=== PATIENT | female | born 1930 | race Caucasian/White ===

== ENCOUNTER 2017-04-19 13:07 | Emergency (ER) | payer OTHER ==
[~2017-04-19 13:07] MED LIST: ACETAMINOPHEN325 MG PO; AMLODIPINE BESY10 MG PO; BACTRIM DS1 TAB PO; BISACODYL LAXATI5 MG PO; BISACODYL10 MG PR; CARVEDILOL12.5 MG PO; DIAZEPAM2 MG PO; MILK OF MA400 MG/5 M PO; MINIPRESS2 MG PO; MIRALAX EQUIVAL17 GM PO; TRAZODONE HCL50 MG PO; VITAMIN B-12500 MC1 PO; [UNRECOGNIZED DRUG - OTHER] PO
--- NOTE | 2017-04-19 13:50 | DIAGNOSTIC IMAGING REPORT ---
PROCEDURE: XR TOE - RIGHT INDICATION: PAIN TECHNIQUE: Three views. COMPARISON: None. FINDINGS: Osteoarthritis involving the right first MTP joint and the interphalangeal joint. No evidence of osteomyelitis. IMPRESSION: 1. Osteoarthritis. No evidence of osteomyelitis in the right first toe
--- NOTE | 2017-04-19 14:03 | ED NURSING NOTES ---
Clinical Report - Nurses [facility] [address] [place] [address] 04/19/2017 13:09 Patient: ELIZABETH SALVADOR TRIAGE Triage time 13:16. Acuity: LEVEL 4. Chief Complaint: RIGHT LOWER EXTREMITY PAIN and SWELLING. --13:23 Jd Kong R.N. 13:16 04/19/17. BP: 136/65. HR: 61. RR: 18. O2 saturation: 99%. Temp: 98.6 F (temporal). Pain level now: cannot qualify. --13: Jd Kong R.N. Weight: 63.5 kg. Height/Length: 67 inches. BMI: 21.9. --13: Jd Kong R.N. Medications Acetaminophen Oral (Tablet 325 mg) 2 tablets, 4x a day as needed. AmLODIPine Besylate Oral (Tablet 10 mg) 1 tablet, daily. Bisac-Evac Rectal, as needed. Bisacodyl Oral, as needed. Carvedilol Oral (Tablet 12.5 mg) 1 tablet, daily. Diazepam Oral 2 mg, 3x a day as needed. Mi-Acid Gas Relief Oral 30 mL, as needed. Milk of Magnesia Concentrate Oral 30 mLs, prn. Polyethylene Glycol 3350 Oral 34 gm, as needed. Prazosin HCl Oral (Capsule 2 mg) 1 capsule, 2x a day. TraZODone HCl Oral (Tablet 50 mg) 1 tablet, at bedtime. Vitamin B 12 Oral 500mcg, 2x/day. --13:20 Jd Kong R.N. Medication/allergy information source: the patient's family. --13:23 Jd Kong R.N. Allergies No Known Drug Allergy. --13:20 Jd Kong R.N. History Arrived by private vehicle. Historian: daughter and family. ( Right big toe became noticeably red and swollen in the last 24 hours. Was complaining of right big toe pain since. No fever as per caregiver in the assisted living place.). No injury occurred. This occurred yesterday. She has had swelling (24 hours). She has had redness and trouble walking. Treatment SENIOR GIS ANALYST: (unknown). PAST MEDICAL HX: ( seen by rn intake 2 months ago for her foot care). --13: Jd Kong R.N. Interventions ID band on patient. To room. --13: Jd Kong R.N. PHYSICAL ASSESSMENT Ambulatory to room. GENERAL / NEURO / PSYCH: Appears in no acute distress. She is confused. EXTREMITIES: Extremity pulses are within normal limits. Extremities exhibit normal ROM. Normal gait. Right foot: tenderness and swelling of the first toe. SKIN: Skin intact. Skin is warm and dry. ( right big toe red and swollen). --13 Jd Kong R.N. NURSING PROGRESS NOTES Cold pack applied. Reassurance given. Patient identifiers checked. Side rails up x 2. Bed placed in lowest position. Brakes of bed on. Patient ready for evaluation- INDUSTRIAL X RAY OPERATOR notified. -- Jd Kong R.N. Wound cleansed with sterile saline. Applied clean dressing (non-adherent dressing). GENERAL / NEURO / PSYCH: Alert. RESPIRATORY: No respiratory distress. CVS: Capillary refill less than 2 seconds. EXTREMITIES: Neuro-vascular status intact to the extremities. SKIN: Skin is warm and dry. --14:10 Jd Kong R.N. DISPOSITION / DISCHARGE Discharge instructions provided and reviewed with the caregiver and family (daughter). Reviewed medication(s) side effects, precautions, dosing and course information. Prescription(s) given to the menagerie caretaker (daughter). Reviewed referral to a primary care physician. Scourer verbalized understanding. Written instructions provided in German. Verbalized understanding (daughter). The patient was [facility] to the [facility] and accompanied by family. She left the Emergency Department ambulatory and via private vehicle. Family member driving. --14:12 Jd Kong R.N. 14:11 04/19/17. BP: 132/72. HR: 62. RR: 16. O2 saturation: 98%. Temp: deferred. Pain level now: cannot qualify. --14:12 Jd Kong R.N. Departure time: 14:12. --14:13 Jd Kong R.N. Locked/Released at 04/19/2017 14:13 by Jd Kong R.N.
--- NOTE | 2017-04-19 14:03 | ED CLINICAL REPORT ---
Clinical Report - Physicians/Mid Levels [facility] [address] [place] [address] 04/19/2017 13:09 Patient: ELIZABETH SALVADOR Time Seen: 1309Apr 19 2017. Arrived- By private vehicle. Historian- patient. HISTORY OF PRESENT ILLNESS Chief Complaint: Injury to the right great toe. (Pain/ Swelling). The injury happened 1 - 2 days. Patient is experiencing mild pain. (Patient previously has visited the supervisor sulfuric acid plant for her right great toe Daughter reports recently patient at the [facility], retirement with some swelling to the right great toe. Pt is verbal and ambulatory, difficulty with coherence. No new fevers. Behavior is her norm for patiet.). REVIEW OF SYSTEMS All systems otherwise negative, except as recorded above. PAST HISTORY See nurses notes. The patient has not had a prior injury to the same area. Problems: Chronic kidney disease. Syncope. Chronic kidney disease. UTI - Urinary Tract Infection. Fall. Dementia. Hypertension. Dementia. Additional Surgeries: Hysterectomy. Medications: Acetaminophen Oral (Tablet 325 mg) 2 tablets, 4x a day as needed. AmLODIPine Besylate Oral (Tablet 10 mg) 1 tablet, daily. Bisac-Evac Rectal, as needed. Bisacodyl Oral, as needed. Carvedilol Oral (Tablet 12.5 mg) 1 tablet, daily. Diazepam Oral 2 mg, 3x a day as needed. Mi-Acid Gas Relief Oral 30 mL, as needed. Milk of Magnesia Concentrate Oral 30 mLs, prn. Polyethylene Glycol 3350 Oral 34 gm, as needed. Prazosin HCl Oral (Capsule 2 mg) 1 capsule, 2x a day. TraZODone HCl Oral (Tablet 50 mg) 1 tablet, at bedtime. Vitamin B 12 Oral 500mcg, 2x/day. Allergies: No Known Drug Allergy. SOCIAL HISTORY No alcohol use or drug use. ADDITIONAL NOTES The nursing notes have been reviewed. PHYSICAL EXAM Vital Signs: 04/19/2017 13:16 BP: 136/65. HR: 61. RR: 18. O2 saturation: 99%. Temp: 98.6 F. Head: Head atraumatic. ENT: Ears normal. Nose normal. CVS: Normal heart rate and rhythm. Heart sounds normal. Respiratory: No respiratory distress. Breath sounds normal. No chest wall injury. Abdomen: No visible injury. Soft. Skin: Skin warm. Extremities: Right foot web space. No tenderness. Right foot, plantar aspect. No tenderness or laceration. Right great toe. (large thick toe nail (yellow) with proximal/ distal area of swelling with purple discoloration, fluctulance, no erythema. NO laceration. Non tender). Neuro, Vascular and Tendons: Vascular status intact. Motor intact. No functional tendon deficit. No weakness. Neuro: Severely altered mental status: confused. Eyes open spontaneously. Best verbal response: inappropriate speech. Best motor response: withdrawal. LABS, X-RAYS, AND EKG Rt Toes X-ray: (IMPRESSION: 1. Osteoarthritis. No evidence of osteomyelitis in the right first toe Electronically Final signed by:Zaheer Diaz MD 04/19/2017 1:50:45 PM). PROGRESS AND PROCEDURES PROCEDURES (small drainage of area made with 18 gauge , moderate sangenous drainage, and improvement of the swelling, no odor to drainage.). Course of Care: No signs of acute fracture on x-ray. Signs of subungual hematoma, drainage in ER due to size/ discomfort. No erythema. Full rom. Able to ambulate well. Patient is stable. Patient/family counseled. Disposition: Discharged. CLINICAL IMPRESSION Subungual hematoma of the left great toe. Pedal onchymycosis. INSTRUCTIONS Elevate affected areas above chest level. You may walk and bear weight as tolerated. Prescription Medications: Cephalexin 500 mg: take 1 capsule orally every 8 hours for 3 days. No refill. (Electronically signed by Anya Alston P.A.-C 04/19/2017 14:34) Addenda for ELIZABETH SALVADOR VisitID: [id number] Date: 04/19/2017 04/19/2017 14:13 Keflex (Cephalexin) PO Tablets 500 mg given. Allergies verified and confirmed 5 rights. (Electronically signed by Jd Kong R.N. - 04/19/2017 14:13)
--- NOTE | 2017-04-19 14:03 | ED NURSING NOTES ---
Clinical Report - Nurses [facility] [address] [place] [address] 04/19/2017 13:09 Patient: ELIZABETH SALVADOR TRIAGE Triage time 13:16. Acuity: LEVEL 4. Chief Complaint: RIGHT LOWER EXTREMITY PAIN and SWELLING. --13:23 Jd Kong R.N. 13:16 04/19/17. BP: 136/65. HR: 61. RR: 18. O2 saturation: 99%. Temp: 98.6 F (temporal). Pain level now: cannot qualify. --13: Jd Kong R.N. Weight: 63.5 kg. Height/Length: 67 inches. BMI: 21.9. --13: Jd Kong R.N. Medications Acetaminophen Oral (Tablet 325 mg) 2 tablets, 4x a day as needed. AmLODIPine Besylate Oral (Tablet 10 mg) 1 tablet, daily. Bisac-Evac Rectal, as needed. Bisacodyl Oral, as needed. Carvedilol Oral (Tablet 12.5 mg) 1 tablet, daily. Diazepam Oral 2 mg, 3x a day as needed. Mi-Acid Gas Relief Oral 30 mL, as needed. Milk of Magnesia Concentrate Oral 30 mLs, prn. Polyethylene Glycol 3350 Oral 34 gm, as needed. Prazosin HCl Oral (Capsule 2 mg) 1 capsule, 2x a day. TraZODone HCl Oral (Tablet 50 mg) 1 tablet, at bedtime. Vitamin B 12 Oral 500mcg, 2x/day. --13:20 Jd Kong R.N. Medication/allergy information source: the patient's family. --13:23 Jd Kong R.N. Allergies No Known Drug Allergy. --13:20 Jd Kong R.N. History Arrived by private vehicle. Historian: daughter and family. ( Right big toe became noticeably red and swollen in the last 24 hours. Was complaining of right big toe pain since. No fever as per caregiver in the assisted living place.). No injury occurred. This occurred yesterday. She has had swelling (24 hours). She has had redness and trouble walking. Treatment TRANSPORTATION COORDINATOR: (unknown). PAST MEDICAL HX: ( seen by mechanic chief 2 months ago for her foot care). --13: Jd Kong R.N. Interventions ID band on patient. To room. --13: Jd Kong R.N. PHYSICAL ASSESSMENT Ambulatory to room. GENERAL / NEURO / PSYCH: Appears in no acute distress. She is confused. EXTREMITIES: Extremity pulses are within normal limits. Extremities exhibit normal ROM. Normal gait. Right foot: tenderness and swelling of the first toe. SKIN: Skin intact. Skin is warm and dry. ( right big toe red and swollen). --13 Jd Kong R.N. NURSING PROGRESS NOTES Cold pack applied. Reassurance given. Patient identifiers checked. Side rails up x 2. Bed placed in lowest position. Brakes of bed on. Patient ready for evaluation- SIGNAL ENGINEER notified. -- Jd Kong R.N. Wound cleansed with sterile saline. Applied clean dressing (non-adherent dressing). GENERAL / NEURO / PSYCH: Alert. RESPIRATORY: No respiratory distress. CVS: Capillary refill less than 2 seconds. EXTREMITIES: Neuro-vascular status intact to the extremities. SKIN: Skin is warm and dry. --14:10 Jd Kong R.N. DISPOSITION / DISCHARGE Discharge instructions provided and reviewed with the caregiver and family (daughter). Reviewed medication(s) side effects, precautions, dosing and course information. Prescription(s) given to the inclusion intern (daughter). Reviewed referral to a primary care physician. Physician Recruiter verbalized understanding. Written instructions provided in Vietnamese. Verbalized understanding (daughter). The patient was discharged to the intermediate and accompanied by family. She left the Emergency Department ambulatory and via private vehicle. Family member driving. --14:12 Jd Kong R.N. 14:11 04/19/17. BP: 132/72. HR: 62. RR: 16. O2 saturation: 98%. Temp: deferred. Pain level now: cannot qualify. --14:12 Jd Kong R.N. Departure time: 14:12. --14:13 Jd Kong R.N. Locked/Released at 04/19/2017 14:13 by Jd Kong R.N.
--- NOTE | 2017-04-19 14:03 | ED ORDER SUMMARY ---
..... Patient: ELIZABETH SALVADOR OrderSheet [facility] VisitID: [id number] [address] [place] [address] 86y, F Registration Date/Time: 04/19/2017 ORDER SHEET Weight: 63.5 kg Allergies: No Known Drug Allergy GENERAL ORDERS: Toe Right Urgent (13:24 04/19/2017 Lawrence Wong.A.-C) ([facility] 13:25 DEAeirodrigo Tech1) (13:41 Soledad Ferreira) MEDICATION ORDERS: Keflex PO 500 mg (NOW) (14:02 04/19/2017 Lawrence Wong.Hetal.-C) IV FLUIDS: ORDER SHEET NOTES: [Electronically signed by Jd Kong R.N. (14:13 04/19/2017)] [Electronically locked/signed by Jd Kong R.N. (14:13 04/19/2017)]
--- NOTE | 2017-04-19 14:03 | ED ORDER SUMMARY ---
..... Patient: ELIZABETH SALVADOR OrderSheet [facility] VisitID: [id number] [address] [place] [address] 86y, F Registration Date/Time: 04/19/2017 ORDER SHEET Weight: 63.5 kg Allergies: No Known Drug Allergy GENERAL ORDERS: Toe Right Urgent (13:24 04/19/2017 Lawrence Wong.A.-C) ([facility] 13:25 DEAeirodrigo Tech1) (13:41 Soledad Ferreira) MEDICATION ORDERS: Keflex PO 500 mg (NOW) (14:02 04/19/2017 Lawrence Wong.Hetal.-C) IV FLUIDS: ORDER SHEET NOTES: [Electronically signed by Jd Kong R.N. (14:13 04/19/2017)] [Electronically locked/signed by Jd Kong R.N. (14:13 04/19/2017)]
--- NOTE | 2017-04-19 14:03 | ED CLINICAL REPORT ---
Clinical Report - Physicians/Mid Levels [facility] [address] [place] [address] 04/19/2017 13:09 Patient: ELIZABETH SALVADOR Time Seen: 1309Apr 19 2017. Arrived- By private vehicle. Historian- patient. HISTORY OF PRESENT ILLNESS Chief Complaint: Injury to the right great toe. (Pain/ Swelling). The injury happened 1 - 2 days. Patient is experiencing mild pain. (Patient previously has visited the water technician for her right great toe Daughter reports recently patient at the [facility] with some swelling to the right great toe. Pt is verbal and ambulatory, difficulty with coherence. No new fevers. Behavior is her norm for patiet.). REVIEW OF SYSTEMS All systems otherwise negative, except as recorded above. PAST HISTORY See nurses notes. The patient has not had a prior injury to the same area. Problems: Chronic kidney disease. Syncope. Chronic kidney disease. UTI - Urinary Tract Infection. Fall. Dementia. Hypertension. Dementia. Additional Surgeries: Hysterectomy. Medications: Acetaminophen Oral (Tablet 325 mg) 2 tablets, 4x a day as needed. AmLODIPine Besylate Oral (Tablet 10 mg) 1 tablet, daily. Bisac-Evac Rectal, as needed. Bisacodyl Oral, as needed. Carvedilol Oral (Tablet 12.5 mg) 1 tablet, daily. Diazepam Oral 2 mg, 3x a day as needed. Mi-Acid Gas Relief Oral 30 mL, as needed. Milk of Magnesia Concentrate Oral 30 mLs, prn. Polyethylene Glycol 3350 Oral 34 gm, as needed. Prazosin HCl Oral (Capsule 2 mg) 1 capsule, 2x a day. TraZODone HCl Oral (Tablet 50 mg) 1 tablet, at bedtime. Vitamin B 12 Oral 500mcg, 2x/day. Allergies: No Known Drug Allergy. SOCIAL HISTORY No alcohol use or drug use. ADDITIONAL NOTES The nursing notes have been reviewed. PHYSICAL EXAM Vital Signs: 04/19/2017 13:16 BP: 136/65. HR: 61. RR: 18. O2 saturation: 99%. Temp: 98.6 F. Head: Head atraumatic. ENT: Ears normal. Nose normal. CVS: Normal heart rate and rhythm. Heart sounds normal. Respiratory: No respiratory distress. Breath sounds normal. No chest wall injury. Abdomen: No visible injury. Soft. Skin: Skin warm. Extremities: Right foot web space. No tenderness. Right foot, plantar aspect. No tenderness or laceration. Right great toe. (large thick toe nail (yellow) with proximal/ distal area of swelling with purple discoloration, fluctulance, no erythema. NO laceration. Non tender). Neuro, Vascular and Tendons: Vascular status intact. Motor intact. No functional tendon deficit. No weakness. Neuro: Severely altered mental status: confused. Eyes open spontaneously. Best verbal response: inappropriate speech. Best motor response: withdrawal. LABS, X-RAYS, AND EKG Rt Toes X-ray: (IMPRESSION: 1. Osteoarthritis. No evidence of osteomyelitis in the right first toe Electronically Final signed by:Zaheer Diaz MD 04/19/2017 1:50:45 PM). PROGRESS AND PROCEDURES PROCEDURES (small drainage of area made with 18 gauge , moderate sangenous drainage, and improvement of the swelling, no odor to drainage.). Course of Care: No signs of acute fracture on x-ray. Signs of subungual hematoma, drainage in ER due to size/ discomfort. No erythema. Full rom. Able to ambulate well. Patient is stable. Patient/family counseled. Disposition: Discharged. CLINICAL IMPRESSION Subungual hematoma of the left great toe. Pedal onchymycosis. INSTRUCTIONS Elevate affected areas above chest level. You may walk and bear weight as tolerated. Prescription Medications: Cephalexin 500 mg: take 1 capsule orally every 8 hours for 3 days. No refill. (Electronically signed by Anya Alston P.A.-C 04/19/2017 14:34) Addenda for ELIZABETH SALVADOR VisitID: [id number] Date: 04/19/2017 04/19/2017 14:13 Keflex (Cephalexin) PO Tablets 500 mg given. Allergies verified and confirmed 5 rights. (Electronically signed by Jd Kong R.N. - 04/19/2017 14:13)
--- NOTE | 2017-04-19 14:34 | ED MAR SUMMARY ---
..... Medication Administration Record [facility] [address] [place] [address] Patient: ELIZABETH SALVADOR Visit ID: [id number] 86y, F Weight: 63.5 kg Height/Length: 67 in BMI: 21.9 ALLERGIES: No Known Drug Allergy Given 14:08 04/19/2017 Jd Kong R.N. Medication Administered: KEFLEX [PO] (CEPHALEXIN), Dose: 500 mg Tablets PO. Medication Ordered: Keflex PO 500 mg (NOW).
--- NOTE | 2017-04-19 14:34 | ED DISCHARGE INSTRUCTIONS ---
Patient: ELIZABETH SALVADOR General Instructions [facility] VisitID: [id number] [place] [address] 86y, F Registration Date/Time: 04/19/2017 Subungual hematoma of the left great toe. Pedal onchymycosis. INSTRUCTIONS Elevate affected areas above chest level. You may walk and bear weight as tolerated. Prescription Medications: Cephalexin 500 mg: take 1 capsule orally every 8 hours for 3 days. No refill. ADDITIONAL INFORMATION Subungual Hematoma A subungual hematoma is blood under the nail. It occurs when the finger or toe has been hit or crushed. It causes the nail to look blue. Sometimes, the bone under the nail is also fractured and this will take longer to heal. If the bruise is small and not too painful, it will heal without treatment. If the bruise is large and painful, the blood may need to be drained. If a large area of the nail is damaged, it may be removed by your doctor. If the nail was not removed, it may separate and fall off in the next two weeks. In almost all cases, the nail will grow back from under the cuticle. This takes a few weeks to start and is complete in about 4-6 months for a fingernail and 12 months for a toenail. If the nail bed was damaged, the nail may grow back with a rough or irregular shape. Sometimes the nail may not regrow at all. Home Care: Apply an ice pack (ice cubes in a plastic bag, wrapped in a thin towel) and apply for 20 minutes every 1-2 hours the first day. Continue this 3-4 times a day until the pain and swelling goes away. If the nail was drained: Keep the nail covered with a clean Band-Aid for the next two days. There may be some oozing of blood during that time, so change the Band-Aid as needed. Soak the finger or toe once a day under warm running water. Clean any crust away with a cotton tipped applicator (Q-tip) soaked in soapy water. If the nail was removed: The nail bed (tissue under the nail) is moist, soft and sensitive. This needs to be protected from injury for the first 7-10 days until it dries out and becomes hard. Keep it covered with a dressing or Band-Aid until that time. Bandages tend to stick to a newly exposed nail bed and be hard to remove if left in place more than 24 hours. Therefore, unless you were told otherwise, change dressings every 24 hours. If necessary, soak the dressing off while holding your finger or toe under warm running water. If an x-ray showed a fracture, you should protect the finger or toe for 3-4 weeks while it is healing. If you were prescribed antibiotics to prevent infection, take them as directed until they are all gone. You may use acetaminophen (Tylenol) or ibuprofen (Motrin, Advil) to control pain, unless another medicine was prescribed. [NOTE: If you have chronic liver or kidney disease or ever had a stomach ulcer or GI bleeding, talk with your doctor before using these medicines.] Do not use ibuprofen in children under six months of age. Follow Up With Your Doctor Or This Facility As Advised. If The Nail Was Drained, There Is A Small Risk Of Infection. Watch Carefully For The Signs Listed Below. Get Prompt Medical Attention If Any Of The Following Occur: Increasing redness around the nail Increasing local pain or swelling Pus draining from the nail Fever of 100.4F (38C) or higher, or as directed by your healthcare provider Cephalexin Monohydrate Oral tablet What is this medicine? CEPHALEXIN (sef a THEE in) is a cephalosporin antibiotic. It is used to treat certain kinds of bacterial infections It will not work for colds, flu, or other viral infections. How should I use this medicine? Take this medicine by mouth with a full glass of water. Follow the directions on the prescription label. This medicine can be taken with or without food. Take your medicine at regular intervals. Do not take your medicine more often than directed. Take all of your medicine as directed even if you think you are better. Do not skip doses or stop your medicine early. Talk to your architecture technician regarding the use of this medicine in children. While this drug may be prescribed for selected conditions, precautions do apply. What side effects may I notice from receiving this medicine? Side effects that you should report to your doctor or health nonfarm animal caretaker as soon as possible: allergic reactions like skin rash, itching or hives, swelling of the face, lips, or tongue breathing problems pain or trouble passing urine redness, blistering, peeling or loosening of the skin, including inside the mouth severe or watery diarrhea unusually weak or tired yellowing of the eyes, skin Side effects that usually do not require medical attention (report to your doctor or health nonfarm animal caretaker if they continue or are bothersome): gas or heartburn genital or anal irritation headache joint or muscle pain nausea, vomiting What may interact with this medicine? probenecid some other antibiotics What if I miss a dose? If you miss a dose, take it as soon as you can. If it is almost time for your next dose, take only that dose. Do not take double or extra doses. There should be at least 4 to 6 hours between doses. Where should I keep my medicine? Keep out of the reach of children. Store at room temperature between 59 and 86 degrees F (15 and 30 degrees C). Throw away any unused medicine after the expiration date. What should I tell my health care provider before I take this medicine? They need to know if you have any of these conditions: kidney disease stomach or intestine problems, especially colitis an unusual or allergic reaction to cephalexin, other cephalosporins, penicillins, other antibiotics, medicines, foods, dyes or preservatives or trying to get breast-feeding What should I watch for while using this medicine? Tell your doctor or health nonfarm animal caretaker if your symptoms do not begin to improve in a few days. Do not treat diarrhea with over the counter products. Contact your doctor if you have diarrhea that lasts more than 2 days or if it is severe and watery. If you have diabetes, you may get a false-positive result for sugar in your urine. Check with your doctor or health nonfarm animal caretaker. You have been given the following additional information: Subungual Hematoma Cephalexin Monohydrate Oral tablet You may walk and bear weight as tolerated. (Electronically signed by Anya Alston P.A.-C 04/19/2017 14:34)
--- NOTE | 2017-04-19 14:34 | ED MED RECONCILIATION SUMMARY ---
Patient: ELIZABETH SALVADOR Medication Reconciliation Report [facility] VisitID: [id number] [address] [place] [address] 86y, F Registration Date/Time: 04/19/2017 Weight: 63.5 kg Height/Length: 67 in. BMI: 21.9 ALLERGIES: No Known Drug Allergy The patient's Home Medications are listed below: THE FOLLOWING MEDICATIONS NEED TO BE RECONCILED: Acetaminophen Oral (325 mg) 2 tablets, 4x a day AmLODIPine Besylate Oral (10 mg) 1 tablet, daily Bisac-Evac Rectal Bisacodyl Oral Carvedilol Oral (12.5 mg) 1 tablet, daily Diazepam Oral 2 mg, 3x a day Mi-Acid Gas Relief Oral 30 mL Milk of Magnesia Concentrate Oral 30 mLs, prn Polyethylene Glycol 3350 Oral 34 gm Prazosin HCl Oral (2 mg) 1 capsule, 2x a day TraZODone HCl Oral (50 mg) 1 tablet, at bedtime Vitamin B 12 Oral 500mcg, 2x/day The source(s) of the original Home Medication information: patient's family member The following Medications were given to the patient in the Emergency Department: Keflex [PO] PO 500 mg, administered: 04/19/2017 2:08:00 PM The following Medications were prescribed to the patient: Cephalexin 500 mg: take 1 capsule orally every 8 hours for 3 days. No refill. -- Anya Alston P.A.-C
--- NOTE | 2017-04-19 14:34 | ED DISCHARGE INSTRUCTIONS ---
Patient: ELIZABETH SALVADOR General Instructions [facility] VisitID: [id number] [place] [address] 86y, F Registration Date/Time: 04/19/2017 Subungual hematoma of the left great toe. Pedal onchymycosis. INSTRUCTIONS Elevate affected areas above chest level. You may walk and bear weight as tolerated. Prescription Medications: Cephalexin 500 mg: take 1 capsule orally every 8 hours for 3 days. No refill. ADDITIONAL INFORMATION Subungual Hematoma A subungual hematoma is blood under the nail. It occurs when the finger or toe has been hit or crushed. It causes the nail to look blue. Sometimes, the bone under the nail is also fractured and this will take longer to heal. If the bruise is small and not too painful, it will heal without treatment. If the bruise is large and painful, the blood may need to be drained. If a large area of the nail is damaged, it may be removed by your doctor. If the nail was not removed, it may separate and fall off in the next two weeks. In almost all cases, the nail will grow back from under the cuticle. This takes a few weeks to start and is complete in about 4-6 months for a fingernail and 12 months for a toenail. If the nail bed was damaged, the nail may grow back with a rough or irregular shape. Sometimes the nail may not regrow at all. Home Care: Apply an ice pack (ice cubes in a plastic bag, wrapped in a thin towel) and apply for 20 minutes every 1-2 hours the first day. Continue this 3-4 times a day until the pain and swelling goes away. If the nail was drained: Keep the nail covered with a clean Band-Aid for the next two days. There may be some oozing of blood during that time, so change the Band-Aid as needed. Soak the finger or toe once a day under warm running water. Clean any crust away with a cotton tipped applicator (Q-tip) soaked in soapy water. If the nail was removed: The nail bed (tissue under the nail) is moist, soft and sensitive. This needs to be protected from injury for the first 7-10 days until it dries out and becomes hard. Keep it covered with a dressing or Band-Aid until that time. Bandages tend to stick to a newly exposed nail bed and be hard to remove if left in place more than 24 hours. Therefore, unless you were told otherwise, change dressings every 24 hours. If necessary, soak the dressing off while holding your finger or toe under warm running water. If an x-ray showed a fracture, you should protect the finger or toe for 3-4 weeks while it is healing. If you were prescribed antibiotics to prevent infection, take them as directed until they are all gone. You may use acetaminophen (Tylenol) or ibuprofen (Motrin, Advil) to control pain, unless another medicine was prescribed. [NOTE: If you have chronic liver or kidney disease or ever had a stomach ulcer or GI bleeding, talk with your doctor before using these medicines.] Do not use ibuprofen in children under six months of age. Follow Up With Your Doctor Or This Facility As Advised. If The Nail Was Drained, There Is A Small Risk Of Infection. Watch Carefully For The Signs Listed Below. Get Prompt Medical Attention If Any Of The Following Occur: Increasing redness around the nail Increasing local pain or swelling Pus draining from the nail Fever of 100.4F (38C) or higher, or as directed by your healthcare provider Cephalexin Monohydrate Oral tablet What is this medicine? CEPHALEXIN (sef a THEE in) is a cephalosporin antibiotic. It is used to treat certain kinds of bacterial infections It will not work for colds, flu, or other viral infections. How should I use this medicine? Take this medicine by mouth with a full glass of water. Follow the directions on the prescription label. This medicine can be taken with or without food. Take your medicine at regular intervals. Do not take your medicine more often than directed. Take all of your medicine as directed even if you think you are better. Do not skip doses or stop your medicine early. Talk to your kst operator regarding the use of this medicine in children. While this drug may be prescribed for selected conditions, precautions do apply. What side effects may I notice from receiving this medicine? Side effects that you should report to your doctor or health healthcare or medical as soon as possible: allergic reactions like skin rash, itching or hives, swelling of the face, lips, or tongue breathing problems pain or trouble passing urine redness, blistering, peeling or loosening of the skin, including inside the mouth severe or watery diarrhea unusually weak or tired yellowing of the eyes, skin Side effects that usually do not require medical attention (report to your doctor or health healthcare or medical if they continue or are bothersome): gas or heartburn genital or anal irritation headache joint or muscle pain nausea, vomiting What may interact with this medicine? probenecid some other antibiotics What if I miss a dose? If you miss a dose, take it as soon as you can. If it is almost time for your next dose, take only that dose. Do not take double or extra doses. There should be at least 4 to 6 hours between doses. Where should I keep my medicine? Keep out of the reach of children. Store at room temperature between 59 and 86 degrees F (15 and 30 degrees C). Throw away any unused medicine after the expiration date. What should I tell my health care provider before I take this medicine? They need to know if you have any of these conditions: kidney disease stomach or intestine problems, especially colitis an unusual or allergic reaction to cephalexin, other cephalosporins, penicillins, other antibiotics, medicines, foods, dyes or preservatives or trying to get breast-feeding What should I watch for while using this medicine? Tell your doctor or health healthcare or medical if your symptoms do not begin to improve in a few days. Do not treat diarrhea with over the counter products. Contact your doctor if you have diarrhea that lasts more than 2 days or if it is severe and watery. If you have diabetes, you may get a false-positive result for sugar in your urine. Check with your doctor or health healthcare or medical. You have been given the following additional information: Subungual Hematoma Cephalexin Monohydrate Oral tablet You may walk and bear weight as tolerated. (Electronically signed by Anya Alston P.A.-C 04/19/2017 14:34)
--- NOTE | 2017-04-19 14:34 | ED MED RECONCILIATION SUMMARY ---
Patient: ELIZABETH SALVADOR Medication Reconciliation Report [facility] VisitID: [id number] [address] [place] [address] 86y, F Registration Date/Time: 04/19/2017 Weight: 63.5 kg Height/Length: 67 in. BMI: 21.9 ALLERGIES: No Known Drug Allergy The patient's Home Medications are listed below: THE FOLLOWING MEDICATIONS NEED TO BE RECONCILED: Acetaminophen Oral (325 mg) 2 tablets, 4x a day AmLODIPine Besylate Oral (10 mg) 1 tablet, daily Bisac-Evac Rectal Bisacodyl Oral Carvedilol Oral (12.5 mg) 1 tablet, daily Diazepam Oral 2 mg, 3x a day Mi-Acid Gas Relief Oral 30 mL Milk of Magnesia Concentrate Oral 30 mLs, prn Polyethylene Glycol 3350 Oral 34 gm Prazosin HCl Oral (2 mg) 1 capsule, 2x a day TraZODone HCl Oral (50 mg) 1 tablet, at bedtime Vitamin B 12 Oral 500mcg, 2x/day The source(s) of the original Home Medication information: patient's family member The following Medications were given to the patient in the Emergency Department: Keflex [PO] PO 500 mg, administered: 04/19/2017 2:08:00 PM The following Medications were prescribed to the patient: Cephalexin 500 mg: take 1 capsule orally every 8 hours for 3 days. No refill. -- Anya Alston P.A.-C
--- NOTE | 2017-04-19 14:34 | ED MAR SUMMARY ---
..... Medication Administration Record [facility] [address] [place] [address] Patient: ELIZABETH SALVADOR Visit ID: [id number] 86y, F Weight: 63.5 kg Height/Length: 67 in BMI: 21.9 ALLERGIES: No Known Drug Allergy Given 14:08 04/19/2017 Jd Kong R.N. Medication Administered: KEFLEX [PO] (CEPHALEXIN), Dose: 500 mg Tablets PO. Medication Ordered: Keflex PO 500 mg (NOW).
== END 2017-04-19 14:15 | disposition home or self-care (01) ==
LOC: ED SRH 13:07
DX: S90.212A Contusion of left great toe with damage to nail, initial encounter (principal); Z79.899 Other long term (current) drug therapy; B35.1 Tinea unguium; X58.XXXA Exposure to other specified factors, initial encounter; Y93.9 Activity, unspecified; Y99.9 Unspecified external cause status; Y92.9 Unspecified place or not applicable; I10 Essential (primary) hypertension; F03.90 Unspecified dementia, unspecified severity, without behavioral disturbance, psychotic disturbance, mood disturbance, and anxiety; Z79.1 Long term (current) use of non-steroidal anti-inflammatories (NSAID)